=== PATIENT | male | born 1970 | race Two or more races ===

== ENCOUNTER 2024-05-23 22:38 | Observation (INO) | payer MEDICAID, SELFPAY ==
--- NOTE | 2024-05-23 22:43 | XR_ITS ---
Examination: CTA carotids with intravenous contrast CTA brain, head with intravenous contrast. 2-D sagittal, coronal reconstructions. 3-D reconstructions. Exam date and time: April 26, 2024 1106 hrs. Indications: Stroke alert, onset focal neurologic deficit this evening CTDI: vol (mGy) 39.9 DLP: (mGycm) 469 Technique: Multiple CTA axial brain, head carotid images post intravenous contrast injection 75 cc, [id number]. 2-D sagittal, coronal reconstructions. 3-D reconstructions, 3-D post processing including vascular maximum intensity projection images. Low dose protocols were performed. One or more of the following dose reduction techniques were used; automated exposure control, adjustment of the mA and/or KV according to patient size, use of iterative reconstruction technique. Findings: No common carotid carotid bifurcation or significant internal carotid artery stenoses Mildly dominant left vertebral artery with no critical stenoses No cerebral large vessel arterial occlusions or thrombus Impression: No significant neck arterial stenoses No cerebral large vessel arterial occlusions or thrombus
--- NOTE | 2024-05-23 22:43 | XR_ITS ---
Examination: CT brain head without contrast. 2-D sagittal coronal reconstructions Date and time of exam:April 26, 2024 1044 hrs. Indications: Stroke alert, onset focal neurologic deficit today CTDI: vol (mGy):54.8 DLP: (mGycm):1074 Technique: Multiple CT axial sections of the brain have been obtained, 5 mm slice thickness. Contrast has not been administered. 2-D sagittal, coronal reconstructions have been obtained Low dose protocols were performed. One or more of the following dose reduction techniques were used; automated exposure control, adjustment of the mA and/or KV according to patient size, use of iterative reconstruction technique. Findings: No significant ventricular enlargement. Intra-axial or extra-axial hemorrhage density is not seen. No mass effect or midline shift Basal cisterns are not remarkable. Fourth ventricle is midline. Cranial vault intact. Impression: Negative for acute hemorrhage, mass effect or midline shift
--- NOTE | 2024-05-23 22:44 | PD.EDNEURO ---
Neuro Symptoms Deficit-RME/HPI General Chief Complaint: General Adult/Misc Complain Stated Complaint: POSSIBLE STROKE Time Seen by Provider: 05/23/24 22:43 Source: family and EMS Arrival date/time: 05/23/24 22:38 Mode of arrival: EMS RME / HPI RME / HPI Narrative: DR CALLAHAN MAIN ED EVALUATION: 54-year-old male brought in by ambulance who presents to the emergency department for neurological symptoms and possible stroke. Last known well time approximately 2200. Family member noted patient had right sided facial droop and brought him to ED. Patient also noted right-sided numbness. Denies fall, LOC head trauma, headaches, fever, visual deficits, chest pain, palpitations, shortness of breath, cough, abdominal pain, urinary symptoms, leg swelling or any other medical complaints. Related Data Home Medications ?Medication ?Instructions ?Recorded ?Confirmed levothyroxine 50 mcg capsule 50 mcg PO QDAY 11/12/23 05/24/24 Previous Rx's ?Medication ?Instructions ?Recorded aspirin 81 mg tablet,delayed 81 mg PO QDAY 30 days #30 tabs 05/25/24 release atorvastatin 80 mg tablet 80 mg PO HS 30 days #30 tabs 05/25/24 Allergies Allergy/AdvReac Type Severity Reaction Status Date / Time No Known Allergies Allergy Verified 11/13/23 12:51 Review of Systems Review of Systems Systems Reviewed: All systems reviewed, normal except as documented Past Medical History Past Medical History NEUROLOGIC: Negative Neurological Disorders or Seizures CARDIAC: Positive Cardiac Disorders and Hypercholesterolemia; Negative Congestive Heart Failure RESPIRATORY: Negative Chronic Obstructive Pulmonary Disease (COPD) GENITOURINARY: Negative Genitourinary Disorders or Renal Disease MUSCULOSKELETAL: Positive Musculoskeletal Disorders (joint pain) ENDOCRINE: Positive Endocrine Disorders and Hypothyroidism; Negative Diabetes Mellitus Type 1 or Diabetes Mellitus Type 2 PSYCHO/SOCIAL: Positive Anxiety OTHER HISTORY: Positive Anesthesia Reactions (chest tightness/pain); Negative Hospitalization, Falls, Blood Transfusions, Chicken Pox, Measles or Mumps Surgical History SURGICAL: Positive Abdominal Surgery (ex lap) Social History SMOKING STATUS: Never smoker ED Exam Narrative Physical exam: GENERAL APPEARANCE: alert and oriented x 4, well-developed, well-nourished, no acute distress VITALS: All vitals were reviewed and the pulse ox is 96% on room air, which is normal according to my interpretation. HEENT: Normocephalic, atraumatic; pupils equal, round, reactive to light; EOMI; mucous membranes pink, moist; oropharynx clear NECK: Supple LUNGS: CTABL; no wheezes, no rales, no rhonchi HEART: Regular rate, regular rhythm; normal S1, S2; no murmurs ABDOMEN: non distended; normal BS; soft, no tenderness, no guarding, no rebound; no masses, no organomegaly, no hernia BACK: no CVA tenderness EXTREMITIES: atraumatic; no edema NEUROLOGIC: cranial nerves was intact; see NIHSS score below PSYCHIATRIC: appropriate mood and affect SKIN: warm, dry, normal color; no rashes Examination: BP(137/68), Pulse(80), Blood Glucose(131) 1A: Level of Consciousness - Alert; keenly responsive + 0 1B: Ask Month and Age - Both Questions Right + 0 1C: Blink Eyes & Squeeze Hands - Performs Both Tasks + 0 2: Test Horizontal Extraocular Movements - Normal + 0 3: Test Visual Moe - No Visual Loss + 0 4: Test Facial Palsy (Use Grimace if Obtunded) - Normal symmetry + 0 5A: Test Left Arm Motor Drift - No Drift for 10 Seconds + 0 5B: Test Right Arm Motor Drift - No Drift for 10 Seconds + 0 6A: Test Left Leg Motor Drift - No Drift for 5 Seconds + 0 6B: Test Right Leg Motor Drift - No Drift for 5 Seconds + 0 7: Test Limb Ataxia (FNF/Heel-Terrell) - No Ataxia + 0 8: Test Sensation - Mild-Moderate Loss: Less Sharp/More Dull + 1 9: Test Language/Aphasia - Normal; No aphasia + 0 10: Test Dysarthria - Normal + 0 11: Test Extinction/Inattention - No abnormality + 0 NIHSS Score: 1 NIHSS Free Text : reduced sensation of the right side of face and right arm compared to the left Pre-Morbid Modified [place] Scale:0 Points = No symptoms at all Course Course Course Narrative: Arrived at 2237. Stroke alert called, protocol initiated at 2242. CT taken 2252. Placed on cardiac monitoring to monitor for dysrhythmia. Admitted for further workup and management. Quality Measures Suspected type of Stroke: Unknown at this time Last known well (date): 05/23/24 Last known well (time): 22:00 Tenecteplase given: Reason(s) TPA not given: Outside the time window not given stroke and none Orders Category Date Time Status Bedside Blood Glucose NOW Care 05/23/24 22:43 Completed COVID-19 Screening Questionnaire NOW Care 05/23/24 23:40 Completed Comfort Station Attendant NOW Care 05/23/24 22:43 Completed Continuous Pulse Oximetry NOW Care 05/23/24 22:43 Completed Decision to Admit X1 Care 05/23/24 23:40 Completed EKG (ED ONLY) *Do not use* NOW Care 05/23/24 22:43 Completed In and Out Catheter NEEDED Care 05/23/24 22:43 Completed Insert IV NOW Care 05/23/24 22:43 Completed NIH Stroke Scale now Care 05/23/24 22:43 Completed NPO NOW Care 05/23/24 22:43 Completed Neuro Check Q4H Care 05/23/24 22:43 Completed Nurse Swallow Screen x1 Care 05/23/24 22:43 Completed Consult to Neurology / Tele-Neurology Routine Cons 05/23/24 22:[address] angio stroke protocol Stat Exams 05/23/24 22:[address] stroke protocol Stat Exams 05/23/24 22:43 Completed EKG (ED Only) Stat Exams 05/23/24 22:43 Ordered CBC Stat Lab 05/23/24 23:00 Completed Comprehensive Metabolic Panel Stat Lab 05/23/24 23:00 Completed Drug Screen,Urine Stat Lab 05/24/24 02:24 Completed Magnesium Stat Lab 05/23/24 23:00 Completed Partial Thromboplastin Time Stat Lab 05/23/24 23:00 Completed Prothrombin Time with INR Stat Lab 05/23/24 23:00 Completed Troponin I Stat Lab 05/23/24 23:00 Completed Urinalysis Stat Lab 05/24/24 02:24 Completed Urine Culture Stat Lab 05/24/24 02:24 Completed Aspirin Med 05/23/24 23:20 Discontinued 325 mg PO X1 ONE Clopidogrel [Plavix] Med 05/23/24 23:20 Discontinued 300 mg PO X1 ONE Ondansetron Inj [Zofran Inj] Med 05/23/24 22:43 Discontinued 4 mg IV Q4HR PRN Oxygen Delivery NOW RT 05/23/24 22:43 Completed Vital Signs Vital signs: Vital Signs Temperature 98.9 F 05/23/24 23:00 Pulse Rate 90 05/23/24 23:00 Respiratory Rate 19 05/23/24 23:00 Blood Pressure 120/88 H 05/23/24 23:00 Pulse Oximetry (%) 95 05/23/24 23:00 Oxygen Delivery Method Room Air 05/23/24 23:00 Neuro Symptoms / Deficit MDM Narrative MDM Narrative:: Scribe Attestation: I, Anne Marin, am scribing for and in the presence of Dr. Callahan. Provider Notation: Although this document has been carefully reviewed, there may still be some phonetic and other typographical errors. These errors are purely grammatical due to imperfections in the software program and should not be construed in any way to compromise the substance of the patient's medical care during this visit. Patient data External records reviewed:: [facility] previous records and EMS form Clinical information provided by:: EMS Social determinants that could affect healthcare access:: none Patient has the following chronic illnesses:: Hypercholesterolemia, Hypothyroidism, Anxiety Open appendicitis - [place] 09/2022 Colonoscopy - Dr. Christian 11/13/23 How is presenting disease/condition affected by chronic disease/condition?: uneffected by Evaluation data The following diagnostics were reviewed and interpreted by me:: lab results, radiology exam(s) and EKG tracing(s) Lab and/or radiology exams considered but not ordered:: None Interpretation Summary: I personally reviewed and interpreted CT brain head without contrast on this patient. I agree with the radiologist's interpretation. Head/neck CTA negative for neck arterial stenosis or large vessel occlusion or thrombus. Head CT negative for acute hemorrhage, mass effect or midline shift. Medications / Prescriptions Medications or Prescriptions considered but not ordered:: None Medication administrations:: Medication Administration History Discontinued Medications Acetaminophen (Acetaminophen 325 Mg Tablet) 650 mg PO Q6H PRN PRN Reason: Fever >101.5 Stop: 06/23/24 00:17 Acetaminophen (Acetaminophen 325 Mg Tablet) 650 mg PO Q6H PRN PRN Reason: PAIN SCALE 1-3 (mild Stop: 06/23/24 00:17 Aspirin (Aspirin 325 Mg Tablet) 325 mg PO X1 ONE Stop: 05/23/24 23:21 Last Admin: 05/23/24 23:24 Dose: 325 mg Documented By: GREGORY Aspirin (Aspirin Ec 81 Mg Tabec) 81 mg PO QDAY AIDEN Stop: 06/23/24 08:59 Last Admin: 05/25/24 09:48 Dose: 81 mg Documented By: Admin: 05/24/24 10:03 Dose: 81 mg Documented By: COCO Atorvastatin Calcium (Atorvastatin Calcium 20 Mg Tablet) 80 mg PO HS AIDEN Stop: 06/23/24 20:59 Last Admin: 05/24/24 20:08 Dose: 80 mg Documented By: Clopidogrel Bisulfate (Clopidogrel Bisulfate 75 Mg Tablet) 300 mg PO X1 ONE Stop: 05/23/24 23:21 Last Admin: 05/23/24 23:24 Dose: 300 mg Documented By: GREGORY Clopidogrel Bisulfate (Clopidogrel Bisulfate 75 Mg Tablet) 75 mg PO QDAY AIDEN Stop: 06/23/24 08:59 Last Admin: 05/25/24 09:48 Dose: 75 mg Documented By: Admin: 05/24/24 10:03 Dose: 75 mg Documented By: COCO Sodium Chloride (Ns) 1,000 mls @ 100 mls/hr IV .Q10H AIDEN Stop: 05/24/24 10:58 Last Admin: 05/24/24 01:20 Dose: 100 mls/hr Documented By: GREGORY Levothyroxine Sodium (Levothyroxine Sodium 25 Mcg Tablet) 50 mcg PO ACBR AIDEN Stop: 06/23/24 05:59 Last Admin: 05/25/24 05:19 Dose: 50 mcg Documented By: Admin: 05/24/24 07:05 Dose: 50 mcg Documented By: GREGORY Ondansetron HCl (Ondansetron Inj 2 Mg/Ml Inj 2 Ml) 4 mg IV Q4HR PRN PRN Reason: NAUSEA OR VOMITING Stop: 06/22/24 22:42 Pantoprazole Sodium (Pantoprazole 40 Mg Tablet) 40 mg PO QDAY AIDEN Stop: 06/23/24 08:59 Last Admin: 05/25/24 09:48 Dose: 40 mg Documented By: Admin: 05/24/24 10:03 Dose: 40 mg Documented By: COCO As above Consultations Consultation(s) initiated? (list below): Yes Consultation #1 (Physician, Specialty, Details): Teleneuro Diagnosis Neuro Differential Diagnosis: delirium, subarachnoid hemorrhage, cerebrovascular accident and transient cerebral ischemia Most likely diagnosis given after review of the tests above:: See clinical impression below Admission Indicated Admission indicated?: indicated Admission Request Was there a request for admission?: Yes Admission Attestation Admission request attestation: Discussed case with [] from Hospitalist service regarding admission. Discussed patients ED course, exam findings, labs, and radiology results. The Hospitalist [agrees,declines] to accept the patient for admission. Disposition Plan Disposition Plan: Admit Critical Care Time Critical Care Time Critical Care Time: Yes Total Critical Care Time (min.): 35 Attestation: The high probability of sudden, clinically significant deterioration in the patient?s condition required the highest level of my preparedness to intervene urgently. The services I provided to this patient were to treat and/or prevent clinically significant deterioration. Services included the following: chart data review, reviewing nursing notes and/or old charts, documentation time, construction consultant collaboration regarding findings and treatment options, medication orders and management, direct patient care, vital sign assessments and ordering, interpreting and reviewing diagnostic studies and lab tests. Aggregate critical care time includes only time during which I was engaged in work directly related to the patient?s care, as described above, whether at bedside or elsewhere in the Emergency Department. It did not include time spent performing other reported procedures or the services of residents, students, nurses or physician assistants. Discharge Plan Plan Patient Disposition: Admit Acute Care w/in Hospital Patient condition on transfer: Stable Problem List Clinical Impression: Facial droop, Paresthesia
--- NOTE | 2024-05-23 22:47 | PC.NURSE ---
STROKE ALERT CALLED [phone] PER , STROKE CONSULT CASE [id number]
[2024-05-23 23:00] VITALS: BP 120/88; PULSE 90; RESP 19; RESP 95; TEMP 37.2; O2SAT 95; BMI 32.8
[2024-05-23 23:14] VITALS: PULSE 85; O2SAT 97
[2024-05-23 23:17] VITALS: BP 126/83; PULSE 88; RESP 20; O2SAT 96
[2024-05-23 23:22] LABS: Basophils # (Auto) 0.1 Thou/mm3 (0.0-0.2); Basophils % (Auto) 1 % (0-2.5); Eosinophils # (Auto) 0.3 Thou/mm3 (0.0-0.5); Eosinophils % (Auto) 5 % (0-10); Hematocrit 42.9 % (41.0-53.0); Hemoglobin 14.5 g/dL (13.5-16.0); Immature Granulocytes % (Auto) 1 % (0-0); Immature Granulocytes Auto 0.04 Thou/mm3 (0.00-0.00); Lymphocytes # (Auto) 3.1 Thou/mm3 (1.0-4.8); Lymphocytes % (Auto) 50 % (10-50); Mean Corpuscular HGB Conc 33.8 g/dl (31.0-37.0); Mean Corpuscular Hemoglobin 28.9 pg (25.0-35.0); Mean Corpuscular Volume 86 fL (80-100); Monocytes # (Auto) 0.5 Thou/mm3 (0.0-0.8); Monocytes % (Auto) 7 % (0-12); Neutrophils # (Auto) 2.1 Thou/mm3 (1.8-7.7); Neutrophils % (Auto) 35 % (37-80); Nucleated Red Blood Cell % 0 /100 WBC (0); Platelet Count 275 Thou/mm3 (140-440); RDW Standard Deviation 40.2 fL (35.1-43.9); Red Blood Count 5.02 Miln/mm3 (4.50-5.90); White Blood Count 6.1 Thou/mm3 (3.8-10.6)
--- NOTE | 2024-05-23 23:22 | PC.NURSE ---
@0214: Medical Device Sales Consultant in ct with pt, Dr Maximiliano Kay from [email or web address] on screen assessing pt at this time. pt currently presents a/ox4 GCS:15. Pt appears to be in NAD. Respiration are even and unlabored. pt placed on security monitor and vital sign monitoring while in CT.
--- NOTE | 2024-05-23 23:23 | ESCONSULT_ITS ---
Tele Neuro Consultation Consultation Date 05/23/24 Most Recent Vital Signs Last Vital Signs Temp 98.9 F 05/23/24 23:00 Pulse 90 05/23/24 23:00 Resp 19 05/23/24 23:00 BP 120/88 H 05/23/24 23:00 Pulse Ox 95 05/23/24 23:00 O2 Del Method Room Air 05/23/24 23:00 Consultation Narrative [facility] Tele[facility]urology Consult Services Patient Name:???Shravna Hopson Date of :???1970 Identification Number:??? Date of Service:???05/23/2024 22:45:47 Diagnosis:?I63.89 - Cerebrovascular accident (CVA) due to other mechanism (HCCC) Impression: ?54 y/o M with history of hypothyroidism, HLD, presenting to hospital with acute onset right-sided facial droop and right-sided numbness/weakness, onset of symptoms at 10:00 PM, with some degree of symptom improvement while in ER. On my evaluation, NIHSS Is 1 (reduced sensation over right side of face and right arm). NCHCT did not show acute abnormalities. Given non-disabling nature of his deficits at this time, thrombolytic was not recommended. CTA head/neck does not show any critical vascular abnormalities on my review. ? ?Highest clinical suspicion is for acute ischemic stroke, potentially lacunar syndrome. Recommend admission for monitoring and further evaluation. Our recommendations are outlined below. Recommendations: ? Stroke/Telemetry Floor ? Neuro Checks ? Bedside Swallow Eval ? DVT Prophylaxis ? IV Fluids, Normal Saline ? Head of Bed 30 Degrees ? Euglycemia and Avoid Hyperthermia (PRN Acetaminophen) ? Initiate dual antiplatelet therapy with Aspirin 81 mg daily and Clopidogrel 75 mg daily. ? Antihypertensives PRN if Blood pressure is greater than 220/120 or there is a concern for End organ damage/contraindications for permissive HTN. If blood pressure is greater than 220/120 give labetalol PO or IV or Vasotec IV with a goal of 15% reduction in BP during the first 24 hours. ?-ASA 325 mg x 1 ?-Plavix 300 mg x 1 ?-MRI brain w/o contrast ?-TTE w/ bubble study ?-telemetry monitoring ?-lipid profile, A1C, TSH Sign Out: ? Discussed with Emergency Department Provider Advanced Imaging:CTA Head and Neck Completed. LVO:No Patient in not a candidate for KELSI Metrics: Last Known Well: 05/23/2024 22:00:00 Dispatch Time: 05/23/2024 22:45:47 Arrival Time: 05/23/2024 22:38:00 Initial Response Time: 05/23/2024 22:49:18Symptoms: right-sided numbness, weakness. Initial patient interaction: 05/23/2024 22:53:07 NIHSS Assessment Completed: 05/23/2024 22:58:00Patient is not a candidate for Thrombolytic. Thrombolytic Medical Decision: 05/23/2024 22:59:00Patient was not deemed candidate for Thrombolytic because of following reasons: Stroke severity too mild (non-disabling) . CT head showed no acute hemorrhage or acute core infarct. I personally Reviewed the CT Head and it Showed no acute intracranial abnormalities Primary Provider Notified of Diagnostic Impression and Management Plan on: 05/23/2024 23:07:56 History of Present Illness:Patient is a 54 year old Male. Patient was brought by EMS for symptoms of right-sided numbness, weakness. Patient is able to provide history. ER staff at bedside assist with translation. Patient was in his USOH up until 10:00 PM, at which time he was having dinner, then suddenly developed right lower facial droop and numbness on the right side of his body, also with some mild weakness. Denies history of TIA/stroke, not on any antiplatelets or anticoagulants. Taken to ER for further evaluation. At the time of my assessment, he does feel improvement overall, but still with some numbness over right side of face and right arm. ? Past Medical History: ?Hyperlipidemia ?There is no history of Hypertension ?There is no history of Diabetes Mellitus ?There is no history of Atrial Fibrillation ?There is no history of Coronary Artery Disease ?There is no history of Stroke Other PMH:? hypothyroidism Medications: No Anticoagulant use? No Antiplatelet use Reviewed EMR for current medications Allergies:? Reviewed Social History: Smoking: No Alcohol Use: Yes Drug Use: No Family History: There is no family history of premature cerebrovascular disease pertinent to this consultation ROS : 14 Points Review of Systems was performed and was negative except mentioned in HPI. Past Surgical History: There Is No Surgical History Contributory To Today?s Visit ? Examination: BP(137/68),?Pulse(80),?Blood Glucose(131) 1A: Level of Consciousness - Alert; keenly responsive?+ 0 1B: Ask Month and Age - Both Questions Right?+ 0 1C: Blink Eyes & Squeeze Hands - Performs Both Tasks?+ 0 2: Test Horizontal Extraocular Movements - Normal?+ 0 3: Test Visual Moe - No Visual Loss?+ 0 4: Test Facial Palsy (Use Grimace if Obtunded) - Normal symmetry?+ 0 5A: Test Left Arm Motor Drift - No Drift for 10 Seconds?+ 0 5B: Test Right Arm Motor Drift - No Drift for 10 Seconds?+ 0 6A: Test Left Leg Motor Drift - No Drift for 5 Seconds?+ 0 6B: Test Right Leg Motor Drift - No Drift for 5 Seconds?+ 0 7: Test Limb Ataxia (FNF/Heel-Terrell) - No Ataxia?+ 0 8: Test Sensation - Mild-Moderate Loss: Less Sharp/More Dull?+ 1 9: Test Language/Aphasia - Normal; No aphasia?+ 0 10: Test Dysarthria - Normal?+ 0 11: Test Extinction/Inattention - No abnormality?+ 0 NIHSS Score:?1 NIHSS Free Text :?reduced sensation of the right side of face and right arm compared to the left Pre-Morbid Modified [place] Scale:0 Points = No symptoms at all Spoke with :?Dr. Callahan This consult was conducted in real time using interactive audio and video technology. Patient was informed of the technology being used for this visit and agreed to proceed. Patient located in hospital and provider located at home/office setting. Patient is being evaluated for possible acute neurologic impairment and high probability of imminent or life-threatening deterioration. I spent total of 36 minutes providing care to this patient, including time for face to face visit via telemedicine, review of medical records, imaging studies and discussion of findings with providers, the patient and/or family. Dr Maximiliano Kay [facility] For Inpatient follow-up with [facility] physician please call [facility] at . As we are not an outpatient service for any post hospital discharge needs please contact the hospital for assistance. If you have any questions for the [facility] physicians or need to reconsult for clinical or diagnostic changes please contact us via [facility] at . ?
[2024-05-23] MEDS: Aspirin 325 MG TABLET PO (23:24)
[2024-05-23] MEDS: CLOPIDOGREL BISULFATE 75 MG TABLET 300 MG PO (23:24)
[2024-05-23 23:42] LABS: Partial Thromboplastin Time 27.7 Seconds (22.0-36.0); Prothrombin Time 10.6 Seconds (9.0-12.2)
[2024-05-23 23:56] LABS: Alanine Aminotransferase 30 U/L (10-49); Albumin, Serum 4.6 gm/dL (3.5-5.0); Albumin/Globulin Ratio 1.6 (1.2-2.2); Alkaline Phosphatase 112 U/L (46-116); Anion Gap 11 (7-16); Aspartate Amino Transferase 26 U/L (0-34); BUN/Creatinine Ratio 9 Ratio (12-20); Bilirubin,Total 0.5 mg/dL (0.3-1.2); Blood Urea Nitrogen 9 mg/dL (9-23); Calcium 9.9 mg/dL (8.3-10.6); Calcium (Corrected) 9.9 mg/dL (8.5-10.1); Carbon Dioxide 23.4 mMol/L (20.0-31.0); Chloride 111 mMol/L (98-107); Estimated Creatinine Clearance 83.8 mL/min (>60); Globulin 2.9 gm/dL (2.3-3.5); Glucose 100 mg/dL (74-106); Osmolality,Calculated 287 (275-295); Potassium 3.7 mMol/L (3.4-5.1); Sodium 145 mMol/L (136-145); Total Protein 7.5 gm/dL (5.7-8.2); Troponin I < 0.020 ng/mL (0.0-0.045); eGFR > 60 See Note
[2024-05-24] VITALS (12 sets, daily range): BP systolic 91–140; BP diastolic 64–89; PULSE 62–80; RESP 10–95; TEMP 36.2–36.8; O2SAT 93–98; BMI 31.7
--- NOTE | 2024-05-24 00:24 | ECHO_ITS ---
Transthoracic Echo Report Ht (in): 64 Wt (lb): 191 Exam Location: Portable Status: Emergency Emergency Management Consultant: Barbara Harding Indications: Procedure Performed: BP: 122 / 78 HR: 68 Rhythm: Bradycardia Technical Quality: Fair Contrast: Agitated Saline Total Dose (mL): MEASUREMENTS (Male / Female) Normal Values 2D ECHO LV Diastolic Diameter PLAX 3.9 cm 4.2 - 5.9 / 3.9 - 5.3 cm LV Systolic Diameter PLAX 2.5 cm IVS Diastolic Thickness 0.9 cm 0.6 - 1.0 / 0.6 - 0.9 cm LVPW Diastolic Thickness 0.8 cm 0.6 - 1.0 / 0.6 - 0.9 cm LV Relative Wall Thickness 0.5 LVOT Diameter 2.0 cm LA Volume Index 18.2 cm?/m? 16 - 28 cm?/m? Ascending Aorta Diameter 2.8 cm M-MODE Aortic Root Diameter MM 2.5 cm LA Systolic Diameter MM 3.3 cm LA Ao Ratio MM 1.3 AV Cusp Separation MM 2.2 cm DOPPLER AV Peak Velocity 102.0 cm/s AV Peak Gradient 4.2 mmHg AV Mean Gradient 3.0 mmHg AV Velocity Time Integral 21.1 cm LVOT Peak Velocity 114.0 cm/s LVOT Peak Gradient 5.2 mmHg LVOT Velocity Time Integral 23.9 cm LVOT Cardiac Index 2538.3 cm?/min?m? AV Area Cont Eq vti 3.6 cm? AV Area Cont Eq pk 3.5 cm? MV Peak Velocity 80.3 cm/s MV Peak Gradient 2.6 mmHg MV Mean Velocity 48.4 cm/s MV Mean Gradient 1.0 mmHg MV Area PHT 3.3 cm? Mitral E Point Velocity 67.4 cm/s Mitral A Point Velocity 62.1 cm/s Mitral E to A Ratio 1.1 LV E' Lateral Velocity 10.8 cm/s Mitral E to LV E' Lateral Ratio 6.2 LV E' Septal Velocity 6.4 cm/s Mitral E to LV E' Septal Ratio 10.5 FINDINGS Left Ventricle Normal left ventricular size, wall thickness, systolic function with no obvious regional wall motion abnormalities. The ejection fraction is visually estimated at 60-65%. Right Ventricle The right ventricle is normal in size and systolic function. Left Atrium The left atrium is normal by two-dimensional, color flow and Doppler imaging with no structural abnormalities, no thrombus formation present. Right Atrium The right atrium is normal by two-dimensional imaging, color flow and Doppler imaging with no struct ural abnormalities, no thrombus formation present. Atrial Septum The interatrial septum appears normal with no evidence of a shunt. Aorta The aorta is normal by two-dimensional, color flow and Doppler interrogation. Mitral Valve The mitral valve is normal by two-dimensional, color flow and Doppler interrogation. There is no sig nificant mitral valve regurgitation. Aortic Valve The aortic valve is trileaflet and normal by two-dimensional, color flow and Doppler interrogation. There is trace aortic valve regurgitation. Tricuspid Valve The tricuspid valve is normal by two-dimensional, color flow and Doppler interrogation. There is tra ce tricuspid valve regurgitation. Pulmonic Valve There is no significant pulmonic valve regurgitation. Vessels The pulmonary artery appears normal. The inferior vena cava pulmonary and hepatic veins appear sonya l. Pericardium The pericardium is normal by two-dimensional imaging. There is no significant pericardial effusion. CONCLUSIONS Negative bubble study. No evidence of PFO or ASD. Normal LV size and function. Estimated EF 60-65% Normal RV size and function. Trace AI, TR. Sarmad Padron (Electronically Signed) Final Date: 25 May 2024 12:02
--- NOTE | 2024-05-24 00:30 | ESHP_ITS ---
Documentation for date of: 05/24/24 [facility] History of Present Illness History of present illness: This is a 54-year-old male with PMHx of hypothyroidism and HLD presenting to ED with right sided facial droop. Last seen normal was 3 hours prior to presentation, family member noted the patient face left asymmetrical, patient decided to present to ED. Patient also endorsed right-sided numbness but no other neurological deficits. He denies preceding neurological symptoms. Also denies fall, head trauma, headaches, fever, confusion, LOC, visual or auditory changes, muscle weakness or spasms, chest pain, palpitations, shortness of breath, cough, abdominal pain, GI or urinary symptoms. Patient has been ambulatory, denies dizziness or lightheadedness. ED COURSE On presentation, flattening of right nasolabial fold was noted as well as numbness decreased sensation over the right face. Remainder of neurological exam including cranial nerves was intact. Afebrile, BP 114/75, HR 80, RR 14, satting 95% on room air CBC, CMP, coags unremarkable Head/neck CTA negative for neck arterial stenosis or large vessel occlusion or thrombus Head CT negative for acute hemorrhage, mass effect or midline shift Teleneuro was consulted who recommended ASPIRIN and PLAVIX and follow-up MRI. Patient was admitted for further follow-up. PMHx: None PSHx: None MEDS: None SH: occasional alcohol, previous tobacco smoker >15 years ago, no drugs Exam Vital Signs Temp Pulse Resp BP Pulse Ox O2 Del Method 98.9 F 80 14 114/75 95 Room Air 05/23/24 23:00 05/24/24 00:00 05/24/24 00:00 05/24/24 00:00 05/24/24 00:00 05/24/24 00:00 Narrative Exam GENERAL: Normal appearing middle-aged male, NAD HEENT: NCAT.?SHIVANI. Oral mucosa is moist. Patent Nares NECK: Supple, nontender, no thyromegaly, no meningismus, no JVD, no step offs CHEST: Symmetrical, atraumatic, and with equal expansion, Nontender on palpation no deformity and no crepitus. CARDIOVASCULAR: RRR, no m/g/r LUNGS: CTAB, no w/r/r. Symmetrical chest rise. No intercostal subcostal retraction. ABDOMEN: Soft, flat, nontender. No guarding/rebound tenderness/masses. +BS EXTREMITIES: Nontender.? No edema/cyanosis.?Moves all 4 extremities well, with full ROM and good CSM. SKIN: Warm and dry, no jaundice/rashes. MSK: No lumbar or midline, no CVA, no paraspinal muscle spasm or tenderness. NEURO: Improved right-sided facial droop, sensation over right cheek, PASTRANA x4, CN II-XII grossly intact (other than afore mentioned).?No focal neurologic deficits, motor and sensation intact throughout all extemities. PSYCHIATRIC: Normal mood and affect, cooperative, no SI or HI or hallucinations. Results: Labs 05/23/24 23:00 05/23/24 23:00 Labs: Short CBC 05/23/24 Range/Units 23:00 WBC 6.1 (3.8-10.6) Thou/mm3 Hgb 14.5 (13.5-16.0) g/dL Hct 42.9 (41.0-53.0) % Plt Count 275 (140-440) Thou/mm3 BMP 05/23/24 23:00 Sodium 145 Potassium 3.7 Chloride 111 H Carbon Dioxide 23.4 BUN 9 Creatinine 1.0 Glucose 100 Calcium 9.9 Cardiac Enzymes 05/23/24 Range/Units 23:00 Troponin I < 0.020 (0.0-0.045) ng/mL Liver Function 05/23/24 Range/Units 23:00 Total Bilirubin 0.5 (0.3-1.2) mg/dL AST 26 (0-34) U/L ALT 30 (10-49) U/L Alkaline Phosphatase 112 (46-116) U/L Albumin 4.6 (3.5-5.0) gm/dL Quality Measures Quality Measures stroke Suspected type of Stroke: Unknown at this time Tenecteplase given: Reason(s) Tenecteplase not given: Stroke severity too mild (non-disabling) not given Rehab services: PT evaluation ordered VTE Prophylaxis: mechanical Antithrombotic by day 2:: ordered Statin ordered: >75 y/o moderate or high intensity dose Anticoagulation ordered for A-fib or flutter (current or hx): not indicated and none Medications Home Medications and Allergies Home Medications ?Medication ?Instructions ?Recorded ?Confirmed ?Type atorvastatin 40 mg tablet 40 mg PO QDAY 11/12/23 11/12/23 History levothyroxine 50 mcg capsule 50 mcg PO QDAY 11/12/23 11/12/23 History omeprazole 20 mg tablet,delayed 20 mg PO QDAY 11/12/23 11/12/23 History release Allergies Allergy/AdvReac Type Severity Reaction Status Date / Time No Known Allergies Allergy Verified 11/13/23 12:51 Visit Medications Acetaminophen (Acetaminophen 325 Mg Tablet) 650 mg PO Q6H PRN PRN Reason: Fever >101.5 Stop: 06/23/24 00:17 Acetaminophen (Acetaminophen 325 Mg Tablet) 650 mg PO Q6H PRN PRN Reason: PAIN SCALE 1-3 (mild Stop: 06/23/24 00:17 Ondansetron HCl (Ondansetron Inj 2 Mg/Ml Inj 2 Ml) 4 mg IV Q4HR PRN PRN Reason: NAUSEA OR VOMITING Stop: 06/22/24 22:42 Pantoprazole Sodium (Pantoprazole 40 Mg Tablet) 40 mg PO QDAY AIDEN Stop: 06/23/24 08:59 Discontinued Medications Aspirin (Aspirin 325 Mg Tablet) 325 mg PO X1 ONE Stop: 05/23/24 23:21 Last Admin: 05/23/24 23:24 Dose: 325 mg Clopidogrel Bisulfate (Clopidogrel Bisulfate 75 Mg Tablet) 300 mg PO X1 ONE Stop: 05/23/24 23:21 Last Admin: 05/23/24 23:24 Dose: 300 mg Assessment & Plan Plan This is a 54 old male with PMHx of hypothyroidism, and HLD presented with right sided facial droop with negative CT head and CTA head and neck, admitted for stroke workup. #? Stroke versus TIA # Hyperlipidemia Presented 3 hours after right-sided facial droop and numbness Initial exam showed right-sided droop and numbness, which has improved since admission Initial head CT was negative for acute pathology, head/neck CTA negative for vessel occlusion or thrombus Teleneuro is consulted who recommended ASPIRIN and PLAVIX, repeat MRI Patient received ASPIRIN 325 mg and PLAVIX [address] Mejia consulted, appreciate recommendations ? Continue ASPIRIN 81 mg daily ? Continue PLAVIX 75 mg daily ? Continue ATORVASTATIN 80 mg daily ? Continue normal saline at 100 cc an hour ? Ordered MRI stroke protocol ? Ordered echo with bubble study ? Head elevation >30 degrees ? Neurochecks Q4H ? Seizure precaution ? Speech eval ? Physical therapy ? Daily CBC, CMP, coags ? Follow-up TSH, A1c, lipid panel ? Follow-up EKG # Hypothyroidism History of hypothyroidism ? Resumed home LEVOTHYROXINE 50 mcg ACBF Health maintenance Diet: NPO GI prophylaxis: PROTONIX DVT prophylaxis: SCD Antibiotics: None CODE STATUS: Full Code Disposition: Pending Neuro recommendations Patient case was discussed with attending, Dr. Dontae LISA and senior resident Dr. Flores. Yanet Israel DO PGYI Attending Provider Attestation/Addendum 54-year-old male patient with hyperlipidemia, hypothyroidism was seen in the ER for right-sided facial droop and numbness. The patient has no headache. He he has no nausea or vomiting. He has no arm or leg weakness no other lateralizing signs. Patient is alert and oriented. He is non-smoker nonalcoholic beverage drinker. He denies hypertension or diabetes. The patient will be admitted for stroke workup.
[2024-05-24] MEDS: SODIUM CHLORIDE 0.9% 1000 ML 1,000 ML 100 ML IV (01:20)
[2024-05-24 02:34] LABS: Collection Type, Urine Clean Catch; Squamous Epithelial Cell,Urine 0 /hpf (0-5)
[2024-05-24 02:50] LABS: Bilirubin,Urine Negative (Negative); Blood,Urine Negative (Negative); Clarity,Urine Clear (Clear/Hazy); Color,Urine Colorless (Lt Yel-Yel); Glucose, Urine Negative (Negative); Ketones,Urine Negative (Negative); Leukocyte Esterase,Urine Negative (Negative); Nitrite,Urine Negative (Negative); Protein,Urine Negative (Neg - Trace); RBC,Urine < 1 /hpf (0-3); Specific Gravity,Urine 1.021 (1.001-1.035); Urobilinogen,Urine Negative mg/dL (0.0-1.0); WBC,Urine < 1 /hpf (0-5)
[2024-05-24 02:57] LABS: Amphetamine/Methamp Scrn,U Negative (Negative); Barbiturate Screen,Urine Negative (Negative); Benzodiazepines Screen,Urine Negative (Negative); Benzoylecgonine Screen, Ur Negative (Negative); Fentanyl Screen,Urine Negative (Negative); Opiate Screen,Urine Negative (Negative); THC Screen,Urine Negative (Negative)
[2024-05-24 06:01] LABS: Glucose Estimated Average 111 mg/dL (80-131); Hemoglobin A1C 5.5 % Hgb (4.8-6.0)
[2024-05-24 06:06] LABS: Alanine Aminotransferase 27 U/L (10-49); Albumin, Serum 4.2 gm/dL (3.5-5.0); Albumin/Globulin Ratio 1.8 (1.2-2.2); Alkaline Phosphatase 94 U/L (46-116); Anion Gap 11 (7-16); Aspartate Amino Transferase 19 U/L (0-34); BUN/Creatinine Ratio 8 Ratio (12-20); Bilirubin,Total 0.4 mg/dL (0.3-1.2); Blood Urea Nitrogen 8 mg/dL (9-23); Calcium 8.9 mg/dL (8.3-10.6); Calcium (Corrected) 8.9 mg/dL (8.5-10.1); Carbon Dioxide 22.5 mMol/L (20.0-31.0); Cardiac Risk Estimate 4.9 RATIO (4.0-6.7); Chloride 110 mMol/L (98-107); Cholesterol 172 mg/dL (132-200); Estimated Creatinine Clearance 83.8 mL/min (>60); Globulin 2.4 gm/dL (2.3-3.5); Glucose 100 mg/dL (74-106); HDL Cholesterol 35 mg/dL (40-60); LDL Cholesterol,Calculated 82 mg/dL (0-130); Magnesium 1.7 mg/dL (1.6-2.6); Osmolality,Calculated 283 (275-295); Sodium 143 mMol/L (136-145); Thyroid Stimulating Hormone 1.36 uIU/mL (0.55-4.78); Total Protein 6.6 gm/dL (5.7-8.2); Triglycerides 276 mg/dL (30-150); eGFR > 60 See Note
[2024-05-24] MEDS: LEVOTHYROXINE SODIUM 25 MCG TABLET 50 MCG PO (07:05)
--- NOTE | 2024-05-24 07:19 | PC.NURSE ---
Received report from Kimberly STEEL and assumed care of patient.
[2024-05-24] MEDS: ASPIRIN EC 81 MG TABEC PO (10:03)
[2024-05-24] MEDS: CLOPIDOGREL BISULFATE 75 MG TABLET PO (10:03)
[2024-05-24] MEDS: PANTOPRAZOLE 40 MG TABLET PO (10:03)
--- NOTE | 2024-05-24 10:20 | PC.NURSE ---
Report given to Honey STEEL in Tele
--- NOTE | 2024-05-24 10:57 | PCS.ST ---
swallow eval completed. SORT SUPERVISOR recommends regular textures and thin liquids at this time. see report for additional details
--- NOTE | 2024-05-24 16:52 | PD.RESPRO ---
Documentation for date of: 05/24/24 Subjective Subjective Interval history: Patient was seen and examined by the bedside. Stated that he is having numbness of the right half of the face. Denies any other complaints and no acute overnight events. CBC and CMP is within normal range. Triglycerides are mildly elevated with 276. Urine toxicology tested negative. Head CT and head/neck CT angiogram is negative and did not show any significant lesions. Will schedule MRI tomorrow and will continue antiplatelets. Will follow neurology recommendations. Exam Vital Signs Temp Pulse Resp BP Pulse Ox O2 Del Method 97.2 F 63 10 L 133/79 H 96 Room Air 05/24/24 16:00 05/24/24 16:00 05/24/24 16:00 05/24/24 16:00 05/24/24 16:00 05/24/24 16:00 Narrative Exam General: Awake and in no acute distress. HEENT: Normocephalic, atraumatic, mucous membranes moist. Heart: Regular rate and rhythm, no murmurs. Lungs: Clear to auscultation with no wheezing or crackles. Abdomen: Soft, nondistended, nontender, positive bowel sounds. ?No guarding or rebound tenderness. Neurologic: Alert and oriented x3, no gross neurological deficit, and patient able to move all 4 extremities. Extremities: No edema. Skin: No rash or ecchymoses. Objective Labs 05/25/24 04:40 05/25/24 04:40 Labs: Laboratory Results - last 24 hr 05/23/24 05/24/24 05/24/24 23:00 02:24 04:54 WBC 6.1 RBC 5.02 Hgb 14.5 Hct 42.9 MCV 86 MCH 28.9 MCHC 33.8 RDW Std Deviation 40.2 Plt Count 275 Neut % (Auto) 35 L Lymph % (Auto) 50 [place] % (Auto) 7 Eos % (Auto) 5 Baso % (Auto) 1 Neut # (Auto) 2.1 Lymph # (Auto) 3.1 [place] # (Auto) 0.5 Eos # (Auto) 0.3 Baso # (Auto) 0.1 Immature Gran # (Auto) 0.04 H Absolute Nucleated RBC 0.00 Immature Gran % 1 H Nucleated RBC % 0 PT 10.6 INR 1.0 APTT 27.7 Sodium 145 143 Potassium 3.7 4.0 Chloride 111 H 110 H Carbon Dioxide 23.4 22.5 Anion Gap 11 11 BUN 9 8 L Creatinine 1.0 1.0 Estim Creat Clear Calc 83.8 83.8 eGFR > 60 > 60 BUN/Creatinine Ratio 9 L 8 L Glucose [address] Glu mg/dL 111 Hemoglobin A1c 5.5 Calculated Osmolality 287 283 Calcium 9.9 8.9 Corrected Calcium 9.9 8.9 Magnesium 2.0 1.7 Total Bilirubin 0.5 0.4 AST 26 19 ALT 30 27 Alkaline Phosphatase 112 94 Troponin I < 0.020 Total Protein 7.5 6.6 Albumin 4.6 4.2 Globulin 2.9 2.4 Albumin/Globulin Ratio 1.6 1.8 Triglycerides 276 H Cholesterol 172 LDL Cholesterol, Calc 82 HDL Cholesterol 35 L Cholesterol/HDL Ratio 4.9 TSH 1.36 Ur Collection Type Clean Catch Urine Color Colorless A Urine Clarity Clear Urine pH 6.0 Ur Specific Atlas 1.021 Urine Protein Negative Urine Glucose (UA) Negative Urine Ketones Negative Urine Blood Negative Urine Nitrite Negative Urine Bilirubin Negative Urine Urobilinogen (Auto) Negative Ur Leukocyte Esterase Negative Urine RBC < 1 Urine WBC < 1 Ur Squamous Epith Cells 0 Urine Bacteria None Urine Opiates Screen Negative Urine Fentanyl Screen Negative Ur Barbiturates Screen Negative U Amphetamin/Meth Scrn Negative U Benzodiazepines Scrn Negative U Cocaine Metab Screen Negative U Marijuana (THC) Screen Negative Quality Measures Quality Measures stroke Suspected type of Stroke: Unknown at this time Last known well (date): 05/23/24 Last known well (time): 22:00 Tenecteplase given: Reason(s) Tenecteplase not given: Outside the time window not given Rehab services: PT evaluation ordered VTE Prophylaxis: mechanical Antithrombotic by day 2:: ordered Statin ordered: <75 y/o high intensity dose Anticoagulation ordered for A-fib or flutter (current or hx): not indicated and none Assessment & Plan Assessment Current Active Medications: Generic Name Dose Route Start Last Admin Trade Name Freq PRN Reason Stop Dose Admin Acetaminophen 650 mg 05/24/24 00:18 Acetaminophen 325 Mg Tablet PO 06/23/24 00:17 Q6H PRN Fever >101.5 Acetaminophen 650 mg 05/24/24 00:18 Acetaminophen 325 Mg Tablet PO 06/23/24 00:17 Q6H PRN PAIN SCALE 1-3 (mild Aspirin 81 mg 05/24/24 09:00 05/24/24 10:03 Aspirin Ec 81 Mg Tabec PO 06/23/24 08:59 81 mg QDAY AIDEN Administration Atorvastatin Calcium 80 mg 05/24/24 21:00 Atorvastatin Calcium 20 Mg Tablet PO 06/23/24 20:59 HS AIDEN Clopidogrel Bisulfate 75 mg 05/24/24 09:00 05/24/24 10:03 Clopidogrel Bisulfate 75 Mg Tablet PO 06/23/24 08:59 75 mg QDAY AIDEN Administration Levothyroxine Sodium 50 mcg 05/24/24 06:00 05/24/24 07:05 Levothyroxine Sodium 25 Mcg Tablet PO 06/23/24 05:59 50 mcg ACBR AIDEN Administration Ondansetron HCl 4 mg 05/23/24 22:43 Ondansetron Inj 2 Mg/Ml Inj 2 Ml IV 06/22/24 22:42 Q4HR PRN NAUSEA OR VOMITING Pantoprazole Sodium 40 mg 05/24/24 09:00 05/24/24 10:03 Pantoprazole 40 Mg Tablet PO 06/23/24 08:59 40 mg QDAY AIDEN Administration Plan This is a 54 old male with PMHx of hypothyroidism, and HLD presented with right sided facial droop with negative CT head and CTA head and neck, admitted for stroke workup. #? Stroke versus TIA # Hyperlipidemia Presented 3 hours after right-sided facial droop and numbness Initial exam showed right-sided droop and numbness, which has improved since admission Initial head CT was negative for acute pathology, head/neck CTA negative for vessel occlusion or thrombus Teleneuro is consulted who recommended ASPIRIN and PLAVIX, repeat MRI Patient received ASPIRIN 325 mg and PLAVIX [address] Mejia consulted, appreciate recommendations ? Continue ASPIRIN 81 mg daily ? Continue PLAVIX 75 mg daily ? Continue ATORVASTATIN 80 mg daily ? Continue normal saline at 100 cc an hour ? Ordered MRI stroke protocol ? Ordered echo with bubble study ? Head elevation >30 degrees ? Neurochecks Q4H ? Seizure precaution ? Speech eval ? Physical therapy ? Daily CBC, CMP, coags ? Follow-up TSH, A1c, lipid panel ? Follow-up EKG # Hypothyroidism History of hypothyroidism ? Resumed home LEVOTHYROXINE 50 mcg ACBF Health maintenance Diet: Regular diet GI prophylaxis: PROTONIX DVT prophylaxis: SCD Antibiotics: None CODE STATUS: Full Code Disposition: Pending Neuro recommendations Patient plan of care was discussed with the attending physician, Dr. Paulina Fuentes, PGY1 Attending Provider Attestation/Addendum Carolyn, Omaira Gallardo DO, attest that I was physically present for the galvez portions of the service and evaluated the patient with the resident and I reviewed and discussed the case with the resident and agree with the resident's findings and plans of care as documented above Patient seen and eval this a.m. He states that he is doing better currently. Patient came with aphasia and numbness in the right side of his face. He states he continues to have some numbness in his face at this time. CT head was negative. Pending MRI at this time. Patient states he takes Synthroid at home and Lipitor. No focal neurological deficits noted on exam. Will follow-up with MRI results and neurology recommendations at this time.
[2024-05-24] MEDS: ATORVASTATIN CALCIUM 20 MG TABLET 80 MG PO (20:08)
[2024-05-25] VITALS: BP 138/81; PULSE 67; PULSE 68; RESP 12; TEMP 36.6; O2SAT 97
--- NOTE | 2024-05-25 | XR_ITS ---
Examinations: MRI Brain without intravenous contrast. MRA brain without intravenous contrast. MRA carotids without intravenous contrast 3-D vascular reconstructions Date and time of exam: May 25, 2024 1223 hours INDICATIONS: Stroke alert May 23, 2024 onset focal neurologic deficit right-sided facial droop right-sided body numbness Technique: Multiple axial and sagittal images of the brain have been obtained MRA brain carotid images without contrast obtained, including 3-D postprocessing, vascular maximum intensity projection images Findings: [place] is not enlarged. The optic chiasm and infundibular stalk are not remarkable. Prepontine and interpeduncular cisterns are not enlarged. No localized enlargement of the medulla or niki. Fourth ventricle and cerebellar tonsils normal in position. Subacute hemorrhage is not seen. Fourth ventricle is midline. Mass in the cerebellopontine angle region is not evident. 7th and 8th nerve complexes exhibits symmetry. Globes are symmetrical with no retro-orbital mass. Very subtle foci increased signal in the white matter for instance in the frontal white matter axial FLAIR image 14 Diffusion-weighted images demonstrate no focus of restricted diffusion Mass-effect upon the ventricular system is not identified. MRA carotid images degraded by patient motion. MRA brain images no large vessel occlusions Impression: Negative for acute hemorrhage mass effect or midline shift No acute infarct Very subtle scattered foci increased signal in the white matter early demyelinating disease pattern, clinical correlation advised
[2024-05-25 04:00] VITALS: BP 131/85; PULSE 62; PULSE 66; RESP 12; TEMP 36.5; O2SAT 98
[2024-05-25] MEDS: LEVOTHYROXINE SODIUM 25 MCG TABLET 50 MCG PO (05:19)
[2024-05-25 05:53] LABS: Basophils # (Auto) 0.1 Thou/mm3 (0.0-0.2); Basophils % (Auto) 1 % (0-2.5); Eosinophils # (Auto) 0.6 Thou/mm3 (0.0-0.5); Eosinophils % (Auto) 9 % (0-10); Hematocrit 41.4 % (41.0-53.0); Hemoglobin 13.8 g/dL (13.5-16.0); Immature Granulocytes % (Auto) 1 % (0-0); Immature Granulocytes Auto 0.03 Thou/mm3 (0.00-0.00); Lymphocytes # (Auto) 2.2 Thou/mm3 (1.0-4.8); Lymphocytes % (Auto) 38 % (10-50); Mean Corpuscular HGB Conc 33.3 g/dl (31.0-37.0); Mean Corpuscular Hemoglobin 28.8 pg (25.0-35.0); Mean Corpuscular Volume 86 fL (80-100); Monocytes # (Auto) 0.4 Thou/mm3 (0.0-0.8); Monocytes % (Auto) 7 % (0-12); Neutrophils # (Auto) 2.6 Thou/mm3 (1.8-7.7); Neutrophils % (Auto) 44 % (37-80); Nucleated Red Blood Cell % 0 /100 WBC (0); Platelet Count 237 Thou/mm3 (140-440); RDW Standard Deviation 40.2 fL (35.1-43.9); Red Blood Count 4.79 Miln/mm3 (4.50-5.90); White Blood Count 5.9 Thou/mm3 (3.8-10.6)
[2024-05-25 05:59] VITALS: BMI 32.6
[2024-05-25 06:49] LABS: Alanine Aminotransferase 24 U/L (10-49); Albumin, Serum 4.1 gm/dL (3.5-5.0); Albumin/Globulin Ratio 1.7 (1.2-2.2); Alkaline Phosphatase 75 U/L (46-116); Anion Gap 11 (7-16); Aspartate Amino Transferase 22 U/L (0-34); BUN/Creatinine Ratio 11 Ratio (12-20); Bilirubin,Total 1.5 mg/dL (0.3-1.2); Blood Urea Nitrogen 12 mg/dL (9-23); Carbon Dioxide 23.8 mMol/L (20.0-31.0); Chloride 105 mMol/L (98-107); Creatinine (Component) 1.1 mg/dL (0.6-1.3); Estimated Creatinine Clearance 76.1 mL/min (>60); Globulin 2.4 gm/dL (2.3-3.5); Glucose 90 mg/dL (74-106); Magnesium 1.8 mg/dL (1.6-2.6); Osmolality,Calculated 279 (275-295); Phosphorous 2.9 mg/dL (2.4-5.1); Potassium 3.8 mMol/L (3.4-5.1); Sodium 140 mMol/L (136-145); Total Protein 6.5 gm/dL (5.7-8.2); eGFR > 60 See Note
[2024-05-25 08:00] VITALS: BP 122/78; PULSE 68; PULSE 69; RESP 16; TEMP 36.3; O2SAT 97
[2024-05-25] MEDS: ASPIRIN EC 81 MG TABEC PO (09:48)
[2024-05-25] MEDS: CLOPIDOGREL BISULFATE 75 MG TABLET PO (09:48)
[2024-05-25] MEDS: PANTOPRAZOLE 40 MG TABLET PO (09:48)
[2024-05-25 12:00] VITALS: BP 122/76; PULSE 62; PULSE 67; RESP 18; TEMP 37; O2SAT 95
--- NOTE | 2024-05-25 14:40 | ESDS_ITS ---
<Statement entered by Omaira Gallardo DO - 05/25/24 16:45> I, Omaira Gallardo DO, attest that I was physically present for the galvez portions of the service and evaluated the patient with the resident and I reviewed and discussed the case with the resident and agree with the resident's findings and plans of care as documented above <Statement entered by Ron Campbell MD - 05/25/24 16:23> Patient was examined and case was reviewed with team including attending physician. Note reviewed, I agree with the discharge plan as documented. - Ron Campbell MD, PGY 2 Planned Discharge Date 05/25/24 DS: Providers Provider Date of admission: 05/24/24 00:18 Primary care physician: Gordon Nichole MD Admitting Provider: Unruly Diggs MD Attending Provider on Admission: Unruly Diggs MD Consults: 05/23/24 22:43 Consult to Neurology / Tele-Neurology Routine Comment: Consulting Provider: [facility] 05/24/24 00:52 Consult to Neurology / Tele-Neurology Routine Comment: Consulting Provider: Jose Maria Mejia Referral Physical Therapy Stat Comment: Physician Instructions: Referral Speech Therapy Routine Comment: 05/24/24 10:53 Referral Speech Therapy Routine Comment: swallow eval Attending Provider on DC: Alfonzo Fuentes MD Discharging Provider: Alfonzo Fuentes MD DS: Diagnosis Problem List Completed Was Problem List Reviewed/Reconciled?: Yes Hospital Course Hospital Course Hospital course: A 54-year-old male with PMHx of hypothyroidism and HLD presenting to ED with right sided facial droop as noted by his family members and patient also endorsed right-sided numbness but no other neurological deficits. Denies any other complaints. Vitals are stable. CBC and CMP is within normal limits. Lipid panel showed elevated triglycerides, 276. HbA1c and TSH is within normal limits. CT head was negative for any hemorrhage or acute infarct. CT angio of head and neck is negative for any vessel stenosis. MRI head done did not show any infarct, but very subtle scattered foci with increased signal in white matter. Patient has been cleared by neurology for discharge. During the hospital course, right-sided numbness of face is resolved And did not have any complications during the hospital stay. Patient is discharged to home with the following medications and recommendations. -Follow up with your primary care provider within 1 week of discharge. -If your PCP is unavailable, you can make an appointment at the [facility] at [phone]. -Your atorvastatin was increased to 80mg. Continue taking aspirin 81mg daily. -Continue levothyroxine as previously prescribed. # Suspected TIA #Hypothyroidism # Hypertriglyceridemia Patient plan of care was discussed with the attending physician, Dr. Gallardo and senior resident Dr. Shannan Fuentes, PGY1 Time Spent with Patient Time attestation: Total time spent providing and/or coordinating discharge services: Time spent: Greater than 30 minutes Quality: Stroke Pt Provided Written Stroke Discharge Instructions: Yes Exam Vital Signs Temp Pulse Resp BP Pulse Ox O2 Del Method 98.6 F 67 18 122/76 95 Room Air 05/25/24 12:00 05/25/24 12:00 05/25/24 12:00 05/25/24 12:00 05/25/24 12:00 05/25/24 12:00 Narrative Exam General: Awake and in no acute distress. HEENT: Normocephalic, atraumatic, mucous membranes moist. Heart: Regular rate and rhythm, no murmurs. Lungs: Clear to auscultation with no wheezing or crackles. Abdomen: Soft, nondistended, nontender, positive bowel sounds. ?No guarding or rebound tenderness. Neurologic: Alert and oriented x3, no gross neurological deficit, and patient able to move all 4 extremities. Extremities: No edema. Skin: No rash or ecchymoses. Discharge Plan Plan Patient Disposition: HOME (Self Care) Patient condition on transfer: Stable Care Plan Goals: Follow up with your primary care provider within 1 week of discharge. If your PCP is unavailable, you can make an appointment at the [facility] at [phone]. Your atorvastatin was increased to 80mg. Continue taking aspirin 81mg daily. Continue levothyroxine as previously prescribed. Prescriptions/Referrals Prescriptions/Med Rec: New aspirin 81 mg Tablet,Delayed Release (Dr/Ec) 81 mg PO QDAY 30 Days Qty: 30 2RF atorvastatin 80 mg tablet 80 mg PO HS 30 Days Qty: 30 2RF Continued levothyroxine 50 mcg Capsule 50 mcg PO QDAY Discontinued atorvastatin 40 mg Tablet 40 mg PO QDAY Referrals: Gordon Nichole MD [Primary Care Provider] - Patient/Caregiver Discharge Instructions Discharge Activity: as per physical therapy Other Discharge Activity Instructions:: Mynor un seguimiento con benitez proveedor de atenci?n primaria dentro de la semana posterior al gela. Si benitez PCP no est? disponible, puede programar bryce aldo en el [facility] al [phone]. Benitez atorvastatina se aument? a 80 mg. Contin?e tomando aspirina 81 mg al d?a. Contin?e con levotiroxina seg?n lo prescrito anteriormente. Education Materials: What Is a TIA? Print Language: Haitian Stand Alone Forms: Yani Award Info., Patient Portal Info Letter Discharge Order Discharge Orders: Discharge (Routine); Ordered 05/25/24 Ordered By: Ayleen Gomes Quality Discharge Quality Measures VTE prophylaxis
--- NOTE | 2024-06-17 16:13 | PD.NEUROPROG ---
Documentation for date of: 05/25/24 Exam - Neurology Vital Signs Temp Pulse Resp BP Pulse Ox O2 Del Method 98.6 F 67 18 122/76 95 Room Air 05/25/24 12:00 05/25/24 12:00 05/25/24 12:00 05/25/24 12:00 05/25/24 12:00 05/25/24 12:00 Objective Labs 05/25/24 04:40 05/25/24 04:40
== END 2024-05-25 15:50 | disposition home or self-care (01) ==
LOC: SERX 23:16 → S2NX 05-25 06:37 → SERHOLD 05-26 06:45 → S2NX 05-26 06:45
PROVIDERS: Admitting Provider Internal Medicine; Emergency Provider Emergency Medicine; PCP Family Medicine; Visit Provider Internal Medicine
DX: R29.810 Facial weakness (principal); E03.9 Hypothyroidism, unspecified; E78.00 Pure hypercholesterolemia, unspecified; E78.1 Pure hyperglyceridemia; Z87.891 Personal history of nicotine dependence
CPT/HCPCS: 36415; 70450; 70496; 70498; 70544; 80053; 80061; 80307; 81001; 83036; 83735; 84100; 84443; 84484; 85025; 85610; 85730; 87086; 92610; 93306; 97162; 99291; A4649; G0378; J7030; Q9967; A9270

== ENCOUNTER 2024-10-12 05:35 | Day surgery (SDC) | payer MEDICAID, SELFPAY ==
--- NOTE | 2024-10-09 06:39 | EKG_ITS ---
[facility] Test Date: 2024-10-09 Pat Name: CLAY RICHARD Department: Room: - Gender: Male Maintenance Director: DAYTON : 1970 Requested By: Wilbur Clay Order Number: [id number] Reading MD: Wilbur Clay Measurements Intervals [place] Rate: 64 P: 56 TN: 207 QRS: 5 QRSD: 77 T: 15 QT: 389 QTc: 402 Interpretive Statements SINUS RHYTHM No previous ECG available for comparison /[id number]/[email or web address]/[id number]
[2024-10-09 12:12] VITALS: BMI 33.3
[2024-10-09 12:56] LABS: Collection Type, Urine Clean Catch; WBC,Urine 0 /hpf (0-5)
[2024-10-09 13:16] LABS: Basophils # (Auto) 0.1 Thou/mm3 (0.0-0.2); Basophils % (Auto) 1 % (0-2.5); Eosinophils # (Auto) 0.3 Thou/mm3 (0.0-0.5); Eosinophils % (Auto) 5 % (0-10); Hematocrit 44.4 % (41.0-53.0); Hemoglobin 14.6 g/dL (13.5-16.0); Immature Granulocytes % (Auto) 1 % (0-0); Immature Granulocytes Auto 0.05 Thou/mm3 (0.00-0.00); Lymphocytes # (Auto) 2.9 Thou/mm3 (1.0-4.8); Lymphocytes % (Auto) 39 % (10-50); Mean Corpuscular HGB Conc 32.9 g/dl (31.0-37.0); Mean Corpuscular Hemoglobin 28.9 pg (25.0-35.0); Mean Corpuscular Volume 88 fL (80-100); Monocytes # (Auto) 0.5 Thou/mm3 (0.0-0.8); Monocytes % (Auto) 7 % (0-12); Neutrophils # (Auto) 3.6 Thou/mm3 (1.8-7.7); Neutrophils % (Auto) 48 % (37-80); Nucleated Red Blood Cell % 0 /100 WBC (0); Platelet Count 301 Thou/mm3 (140-440); RDW Standard Deviation 40.4 fL (35.1-43.9); Red Blood Count 5.06 Miln/mm3 (4.50-5.90); White Blood Count 7.4 Thou/mm3 (3.8-10.6)
[2024-10-09 13:20] LABS: Bilirubin,Urine Negative (Negative); Blood,Urine Negative (Negative); Clarity,Urine Clear (Clear/Hazy); Color,Urine Lt-Yellow (Lt Yel-Yel); Glucose, Urine Negative (Negative); Ketones,Urine Negative (Negative); Leukocyte Esterase,Urine Negative (Negative); Nitrite,Urine Negative (Negative); Protein,Urine Negative (Neg - Trace); RBC,Urine < 1 /hpf (0-3); Specific Gravity,Urine 1.014 (1.001-1.035); Squamous Epithelial Cell,Urine < 1 /hpf (0-5); Urobilinogen,Urine Negative mg/dL (0.0-1.0)
[2024-10-09 13:25] LABS: Prothrombin Time 10.6 Seconds (9.0-12.2)
[2024-10-09 13:33] LABS: Alanine Aminotransferase 31 U/L (10-49); Albumin, Serum 4.7 gm/dL (3.5-5.0); Albumin/Globulin Ratio 1.6 (1.2-2.2); Alkaline Phosphatase 84 U/L (46-116); Anion Gap 7 (7-16); Aspartate Amino Transferase 32 U/L (0-34); BUN/Creatinine Ratio 8 Ratio (12-20); Bilirubin,Total 0.7 mg/dL (0.3-1.2); Blood Urea Nitrogen 9 mg/dL (9-23); Calcium 9.4 mg/dL (8.3-10.6); Calcium (Corrected) 9.4 mg/dL (8.5-10.1); Carbon Dioxide 27.6 mMol/L (20.0-31.0); Chloride 108 mMol/L (98-107); Creatinine (Component) 1.1 mg/dL (0.6-1.3); Estimated Creatinine Clearance 76.8 mL/min (>60); Glucose 89 mg/dL (74-106); Osmolality,Calculated 282 (275-295); Potassium 4.5 mMol/L (3.4-5.1); Sodium 143 mMol/L (136-145); Total Protein 7.7 gm/dL (5.7-8.2); eGFR > 60 See Note
[2024-10-12] VITALS (14 sets, daily range): BP systolic 115–150; BP diastolic 77–96; PULSE 63–86; RESP 11–20; TEMP 36.2–36.7; O2SAT 95–100; BMI 32.9
[2024-10-12] MEDS: RINGERS LACTATED 1000 ML 1,000 ML 60 ML IV (06:51)
--- NOTE | 2024-10-12 09:59 | SUR.OPER ---
,Stefany, notified of case status/progress via phone by Heriberto Gage RN at 1277.
--- NOTE | 2024-10-12 10:43 | ESOP_ITS ---
Date of Procedure 10/12/24 Pre Op Diagnosis Multiple ventral incisional hernias Post Op Diagnosis Same. Procedure Ultrasound-guided identification of the multiple ventral hernias and repair of 5 ventral hernias with implantation of a patch. The size of defect = 15 cm. On 10/12/2024 Findings This patient had a laparotomy done in [place] several years ago. He developed multiple ventral incisional hernias in the scar. He was found to have 5 hernias as identified by the preprocedure ultrasound examination of the abdominal wall. These hernias were marked on the surface that determining the extent of the incision. There is significant amount of small bowel and otherwise adhesions to the omentum. Lysis of adhesions was required. Procedure Description The patient is interviewed in the preoperative area and the procedure was discussed in detail with the patient including expectation of outcomes. Explanation of the technique and complications. An informed consent was obtained. Anesthesia consent was obtained by the anesthesiologist. The hernia sites were marked on the surface. Patient is brought back to the operating room. The patient is positioned supine on the operating table and general anesthesia is administered in a satisfactory manner. Intraoperative ultrasound of the abdominal wall is carried out and the examination showed that he had multiple ventral hernias and they were all marked on the surface from xiphisternum to below the umbilicus. This determined the extent of the incision and repair required. The chest abdomen and thigh genitalia regions are prepped and draped in usual manner. IV antibiotics were given and a timeout procedure was carried out. The local anesthesia quarter percent Marcaine with epinephrine is used. Vertical incision is made around the previous incision and scar is removed. Dissection is carried out in the subcutaneous tissue to the fascia and the 3 different defects are identified. Gentle dissection is carried out and hernia sacs are isolated. The sac is opened and was removed as specimen. There were significantly dense adhesions of the omentum within the hernia sac and surrounding subcutaneous tissue. The contents are reduced. Hemostasis is achieved. Dissection is carried out circumferentially from the peritoneal side to make sure there were no adhesions and bowel attached to the anterior abdominal wall. Lysis of adhesions is carried out on the peritoneal side releasing the omental and small bowel adhesions circumferentially to about 10 cm around. All the hernias defects were incorporated into one defect. The defect is measured. It is about 15.5 cm in length and 6 cm in the width. The laps and instrument counts are obtained they are correct x2 and then I selected a Ventrio ST oval patch to be placed in the underlay position. The patch is oval and measures about 17.5 cm in maximum length. The patch is secured in the preperitoneal space and attached to the fascia in circumferential manner by interrupted O' Ethibond stitches. Laps and instrument counts were correct ?2. The defect in the fascia is closed over the patch. Patch was previously irrigated with gentamicin solution. Hemostasis is achieved. Operative field is thoroughly irrigated with saline solution and the subcutaneous tissues approximated with 3-0 chromic interrupted suture. The skin is approximated by 4-0 Monocryl subcuticular stitches. Dermabond is applied. Sterile dressing and abdominal binder is applied. Patient tolerated the procedure very well complications none. Patient is transferred to recovery room in a satisfactory condition. Anesthesia GETA Drains None. Implants Ventrio ST patch oval Pathology / specimen Other (Hernia sac and skin scar) Estimated Blood Loss 10 Condition Stable Disposition PACU Surgeon Wilbur Clay MD Surgical Staff Operation Date: 10/12/24 07:30 Case Staff Anesthesiologist: Murali Alvarez RN First Assistant: Connie Nguyen nuclear medicine chief technologist with the surgical technology student
--- NOTE | 2024-10-12 11:08 | SUR.PHASEI ---
1106 Patient arrived to recovery sleeping comfortably in [facility], able to arouse then drifts back to sleep, on oxygen 8L via oxy mask, breathing unlabored, vital signs stable, denies pain, dressing intact to abdomen dissolvable sutures, steri-=strips, telfa, abd, gauze, medipore tape, abdominal binder, no bleeding noted, report received from Jojo STEEL/Alphonso STEEL and Dr. Alvarez
--- NOTE | 2024-10-12 11:43 | SUR.PHASEI ---
1143 Verbal order read-back received from Dr. Alvarez, [facility] 10mg oral tab for pain, Fentanyl 50mg via IVP for pain 6-10 pain scale with max dose x2, will place order in EMR and administer per anesthesia order
[2024-10-12] MEDS: fentaNYL CIT INJ 50 mCg/ML AMP 2ML IVP ×2 (11:49→12:05)
[2024-10-12] MEDS: HYDROcodone/APAP 10/325 TAB PO (12:13)
--- NOTE | 2024-10-12 12:51 | SUR.PHASEII ---
This pattern chart writer took over care for this pt at 1245. at bedside. education about IS done. no complaints at this time.
--- NOTE | 2024-10-12 13:20 | SUR.PHASEII ---
1244 Report given to Alison RN, for meal break 1320 Report received from Alison RN, will assume care for patient
--- NOTE | 2024-10-12 13:45 | SUR.PHASEII ---
1345 Patient meets discharge criteria from recovery, awake and alert, breathing unlabored, vital signs stable, per patient his pain is tolerable, dressing intact; no bleeding noted, denies nausea, patient assisted with dressing into his clothing by his , discharge instructions given to patient and patients with the assistance of hospital volleyball assistant coach Alison, signed discharge instructions. Patient given all his belongings prior to discharge, transported via wheelchair and left in a private vehicle.
== END 2024-10-12 13:45 | disposition home or self-care (01) ==
PROVIDERS: PCP Physician Assistant; Referring Provider Specialist; Visit Provider Specialist
PROC: (CPT 49596; principal; 2024-10-12 07:30)
DX: K43.0 Incisional hernia with obstruction, without gangrene (principal)
CPT/HCPCS: 49596; 36415; 80053; 81001; 85025; 85610; 85730; 93005; A4217; A4649; C1781; J0131; J0694; J1580; J1885; J2250; J2371; J2704; J3010; J3490; J7040; J7120; A9270; J0665